=== PATIENT | female | born 1930 | race Caucasian/White ===

== ENCOUNTER 2016-09-24 14:14 | Emergency (ER) | payer MEDICARE ==
[~2016-09-24] VITALS: Ht 160 cm; Wt 60.0 kg
[2016-09-24 14:19] VITALS: BP 133/65; PULSE 72; RESP 16; O2SAT 97
--- NOTE | 2016-09-24 15:09 | ED.REPORT ---
HPI-Altered Mental Status Date of Service Sep 24, 2016 ED Provider: Sage De La Fuente MD An 86 year old female with a history of dementia and previous stroke with left sided residual weakness presents to the ED complaining of worsening fatigue that began a few days ago. Family reports intermittent episodes of confusion for the past few years that have become increasingly worse over the past few months. Recent associated symptoms include weakness, hypersomnia and left eye ptosis that began approx. one week ago. also reports odorous urine for the past few days. Family denies any recent fever, chills, cough, abdominal pain , nausea, vomiting, chest pain, visual changes, dysphagia, slurred speech, numbness/tingling or new onset weakness. Nursing Notes Stated Complaint: FATIGUE, CONFUSION Chief Complaint: General Complaint Nursing Notes Reviewed: Yes Allergies: Coded Allergies: No Known Allergies (Unverified , 09/24/16) Scheduled Cephalexin (Keflex) 500 Mg Capsule 500 MG PO QID General Time Seen by MD: 15:08 Chief Complaint Confused Hx Obtained From: Patient, Spouse, Daughter Arrived By: Walk-in Sudden in Onset?: No Onset Occurred: 1 week ago Symptom Duration: Since onset Progression since Onset: Gradually worsening Associated with: Denies: Chest pain, Fever, Visual disturbance, Weakness Pertinent Negative: Pt denies other symptoms Recent Healthcare: No recent doctor visit, No recent hospitalization Risk Factors )( IC Bleed Risk Strat RF Statements: Risk factors reviewed )( SAH Risk Stratification RF Statements: Risk factors reviewed Past Medical History Past Medical History Dementia Stroke with residual left-sided weakness Past Surgical History None reported Smoking History Unknown if Ever Smoker Social History Other Social History: Good social support, Local resident Ambulatory Status Independent Review of Systems Hypersomnia Odorous urine Denies dysphagia Denies facial asymmetry Constitutional: Reports: Fatigue, Weakness - generalized, Denies: Chills, Fever Cardiovascular: Denies: Chest pain GI: Denies: Abdominal pain, Nausea, Vomiting Neurologic: Reports: Confusion, Weakness, Denies: Change LOC, Focal weakness, Slurred speech, Unable to speak, Vision change Complete sys rev & neg: except as marked. Physical Exam Initial Vital Signs Vital Signs (First) Date Time Temp Pulse Resp B/P Pulse Ox O2 Delivery O2 Flow Rate FiO2 09/24/16 14:19 36.5 72 16 133/65 97 Room Air Initial VS: Reviewed Extremities: Vascular intact, Neuro intact, No swelling, No tenderness Skin: Warm, Dry, No cyanosis Psychiatric: Mood/affect normal, Behavior normal, Normal thought content General/Constitutional: Awake, Alert, No acute distress, Well appearing, Well developed Alertness: Positive: Confused (Unable to remember daughter) Head / Eyes: Atraumatic, Normocephalic Eyelids: Positive: Ptosis L Neck: Atraumatic, Supple Respiratory / Chest: Atraumatic, Breath sounds NL, Breath sounds = bilat, No respiratory distress Cardiovascular: Heart rate NL, Regular rhythm, Heart sounds NL, No murmurs, Peripheral circulation NL, Pulses = bilaterally Neurologic: Oriented X3, Speech NL, No motor deficits, No sensory deficits, CN II - XII intact, Cerebellar NL Mental Status: Positive: Confused (Unable to remember daughter) NERUO: Left eye ptosis Abdomen: Atraumatic, Soft, Non-tender, No guarding, No rebound Interpretation & Diagnostics Lab Results Interpretation Result Diagram: 09/24/16 1600 09/24/16 1600 Test 09/24/16 16:00 09/24/16 17:43 White Blood Count 6.9th/mm3 (3.8-10.1) Red Blood Count 4.35mil/mm3 (3.90-5.20) Hemoglobin 13.5g/dL (12.0-15.6) Hematocrit 40.3% (35.0-46.0) Mean Corpuscular Volume 92.6fL (81-100) Mean Corpuscular Hemoglobin 31.0pg (27.0-35.0) Mean Corpuscular Hemoglobin Concent 33.5% (32.0-37.0) Red Cell Distribution Width 13.3% (12.3-15.4) Platelet Count 227bil/L (150-400) Neutrophils (%) (Auto) 73.9% (40-74) Lymphocytes (%) (Auto) 10.4% (14-46) Monocytes (%) (Auto) 13.4% (4-12) Eosinophils (%) (Auto) 1.7% (0-5) Basophils (%) (Auto) 0.3% (0-3) Sodium Level 135mEq/L (134-144) Potassium Level 3.6mEq/L (3.5-5.2) Chloride Level 98mEq/L (97-108) Carbon Dioxide Level 23mmol/L (18-29) Blood Urea Nitrogen 19mg/dL (8-27) Creatinine 0.60mg/dL (0.57-1.00) Estimat Glomerular Filtration Rate 136mL/min (>59) Glucose Level 132mg/dL (60-99) Calcium Level 8.7mg/dL (8.5-10.1) Total Bilirubin 0.5mg/dL (0.0-1.2) Aspartate Amino Transf (AST/SGOT) 13U/L (0-50) Alanine Aminotransferase (ALT/SGPT) 17U/L (0-32) Alkaline Phosphatase 53U/L (25-165) Troponin T < 0.010ug/L (0.0-0.011) Total Protein 6.7g/dL (6.4-8.4) Albumin 3.5g/dL (3.4-5.0) Hold Wheeler Top Tube Received (Received) Urine Color Yellow (YELLOW) Urine Appearance Hazy (CLEAR,HAZY) Urine pH 5.5 (5.0-8.0) Urine Specific [place] 1.025 (1.003-1.035) Urine Protein Tracemg/dL (NEG,TRACE) Urine Glucose (UA) Negativemg/dL (NEGATIVE) Urine Ketones Negativemg/dL (NEGATIVE) Urine Occult Blood Small (NEGATIVE) Urine Nitrite Positive (NEGATIVE) Urine Bilirubin Negative (NEGATIVE) Urine Urobilinogen Normalmg/dL (NORMAL) Urine Leukocyte Esterase Moderate (NEGATIVE) Urine RBC 3-10/hpf (0-2) Urine WBC Packed/hpf (0-5) Urine Epithelial Cells Occasional/hpf (NONE-MOD) Urine Crystals None seen (NONE SEEN) Urine Bacteria Many/hpf (NONE-FEW) Urine Hyaline Casts None/lpf (NONE) Urine Granular Casts None seen (NONE SEEN) Urine Waxy Casts None seen (NONE SEEN) Urine Red Blood Cell Casts None seen (NONE SEEN) Urine White Blood Cell Casts None seen (NONE SEEN) Urine Mucus None seen (None Seen) Urine Trichomonas None seen (NONE SEEN) Urine Yeast None (NONE SEEN) Urinalysis Comment None Urine Culture Reflexed Indicated ECG Interpretation ECG Interpretation: Sinus Rhythm Rate 66 LBBB No STT changes Time: 16:34 Interpreted by: ED physician CT Head Interpretation IMPRESSION: 1. No acute intracranial hemorrhage. 2. 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 3. Moderate parenchymal volume loss and chronic small vessel ischemic changes. 4. Moderate maxillary and ethmoid sinus disease. Dictated by: Jonnie Jurado M.D. on 09/24/2016 at 15:54 Study: Head CT no contrast Interpretation / Wet Read by: Interpret - Radiologist Re-Eval/Medical Decision Med Decision/Clinical Course 86-year-old female history of dementia brought in by family for weakness times several days. Enteritis. They report chronic progression of her dementia. Recently she has been more weak than usual. Vital signs are stable. Urine suggests UTI. Her labs are unremarkable. She does have some left eye ptosis and CT scan was performed with no acute pathology. Patient be treated for UTI which is possibly the cause of her weakness. I do not see an indication for admission. She will follow-up with her primary doctor in 1-2 days. Return precautions given. Re-Evaluation/Progress #1: Time of Eval: 15:31 Patient Status: Condition improved Re-Evaluation/Progress Note: Patient is rechecked. Family is informed of the pt's reassuring exam. They are offered lab work and CT. All questions about the intended treatment plan are addressed. Re-Evaluation/Progress #2: Time of Eval: 17:09 Patient Status: Condition improved Re-Evaluation/Progress Note: Family is informed of the pt's reassuring CT results, EKG results and lab work. They understand and agree with the discharge plan. Counseled Regarding: Diagnosis, Lab results, Need for follow-up, When/why to return to ED Patient Discharge & Departure Impression: Primary Impression: Urinary tract infection Urinary tract infection type: site unspecified Hematuria presence: without hematuria Qualified Code: N39.0 - Urinary tract infection, site not specified Additional Impression: Dementia Dementia type: unspecified type Dementia behavioral disturbance: without behavioral disturbance Qualified Code: F03.90 - Unspecified dementia without behavioral disturbance Disposition: Home Discharge Condition All VS Reviewed: Yes Condition: Improved Patient Instructions: Dementia (ED), Urinary Tract Infection in Women (ED) Additional Instructions: Thank you for trusting us with your care this evening. Your urine results revealed a urinary tract infection. Your other results today including examination, EKG, lab work and head CT results are reassuring that there is no dangerous cause for concern at this time. I recommend that you schedule a follow up appointment with your primary care physician in the next 2-3 days for a recheck. Please take the full course of Keflex as directed. Continue to take home medication as prescribed. Please return to the emergency department if you begin to develop any new or worsening conditions including any confusion, slurred speech, facial asymmetry, one sided weakness/numbness/tingling, back pain, high fevers, shaking chills or vomiting. Referrals: OTHER,PHYSICIAN (PCP) (Family) Scribe Attestation Portions of this note were transcribed by Qing Nolen. I, Dr. De La Fuente personally performed the history, physical exam and medical decision-making; I reviewed and confirmed the accuracy of the information in the transcribed note. Signed by: Jorge Saleh, 09/24/16 1741. Sage De La Fuente MD Sep 24, 2016 15:09 QING NOLEN Sep 24, 2016 15:27
[2016-09-24 16:11] LABS: BASOPHILS % (AUTO) 0.3 % (0-3); EOSINOPHILS % (AUTO) 1.7 % (0-5); MONOCYTES % (AUTO) 13.4 % (4-12); Mean Corpuscular Volume 92.6 fL (81-100); NEUTROPHILS % (AUTO) 73.9 % (40-74); Platelet Count 227 bil/L (150-400)
--- NOTE | 2016-09-24 16:59 | DRSVH ---
PROCEDURE: CT BRAIN WITHOUT CONTRAST ([id number]) INDICATIONS: altered mental status TECHNIQUE: Noncontrast 4.5 mm thick angled axial sections acquired from the foramen magnum to the vertex, with c oronal reformats. COMPARISON: None. FINDINGS: Image quality: Diagnostic. Brain: Multiple surgical coils are seen overlying the region of the left internal carotid artery term inus. Metallic artifact from these surgical coils does result in difficulty evaluating the adjacent soft tissues. There is no acute intra-axial or extra-axial hemorrhage. No extra-axial fluid collect ion is identified. There is no midline shift or mass effect. The orbits are grossly unremarkable. No large areas of diffusely decreased attenuation are evident within the brain to suggest diffuse cer ebral edema. Confluent areas of low attenuation are seen within the periventricular and deep white m atter of the supratentorial brain. The ventricles and cortical sulci are moderately prominent. Bones: Calvarium and visualized facial bones are grossly intact. Moderate mucosal thickening is not ed involving the bilateral maxillary sinuses and to a lesser degree involving the ethmoid air cells. Otherwise, the paranasal sinuses and mastoid air cells are clear. IMPRESSION: 1. No acute intracranial hemorrhage. 2. 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 3. Moderate parenchymal volume loss and chronic small vessel ischemic changes. 4. Moderate maxillary and ethmoid sinus disease. Dictated by: Jonnie Jurado M.D. on 09/24/2016 at 15:54 Approved by: Jonnie Jurado M.D. on 09/24/2016 at 15:57
[2016-09-24] MEDS ORDERED: CEPH-512 PO (17:39)
[2016-09-24 17:57] VITALS: BP 148/49; PULSE 70; RESP 16; O2SAT 96
[2016-09-24 18:19] LABS: APPEARANCE,URINE HAZY (CLEAR,HAZY); COLOR,URINE YELLOW (YELLOW); PH,URINE 5.5 (5.0-8.0)
[2016-09-24 18:20] LABS: OCCULT BLOOD,URINE SMALL (NEGATIVE); UROBILINOGEN,URINE NORMAL (NORMAL)
== END 2016-09-24 17:59 | disposition home or self-care (01) ==
LOC: SED 14:14
DX: N39.0 Urinary tract infection, site not specified (principal); B96.20 Unspecified Escherichia coli [E. coli] as the cause of diseases classified elsewhere; G47.10 Hypersomnia, unspecified; F03.90 Unspecified dementia, unspecified severity, without behavioral disturbance, psychotic disturbance, mood disturbance, and anxiety; I69.398 Other sequelae of cerebral infarction

== ENCOUNTER 2016-10-13 19:13 | Emergency (ER) | payer MEDICARE ==
[~2016-10-13] VITALS: Ht 157.5 cm; Wt 50.0 kg
[~2016-10-13 19:13] MED LIST: CEPH-512 PO
[2016-10-13 19:14] VITALS: BP 132/63; PULSE 104; RESP 16; O2SAT 95
--- NOTE | 2016-10-13 20:10 | DRSVH ---
PROCEDURE: X-RAY PELVIS WITH BILATERAL HIPS, 3 VIEWS INDICATIONS: pain TECHNIQUE: AP pelvis with lateral view(s) of the bilateral hip(s). COMPARISON: None. FINDINGS: Bones: No fractures or dislocations. Pelvic ring appears intact. No suspicious bony lesions. Soft tissues: The visualized bowel gas pattern is normal. No suspicious soft tissue calcifications. IMPRESSION: Degenerative changes. No visualized acute fracture or dislocation. However, if clinical c oncern and/or pain persist, short interval imaging followup in 7-10 days is recommended, as occult in jury cannot be definitively excluded. Dictated by: Shannan Contreras M.D. on 10/13/2016 at 20:08 Approved by: Shannan Contreras M.D. on 10/13/2016 at 20:09
--- NOTE | 2016-10-13 21:14 | ED.REPORT ---
HPI-Hip/Pelvis Prob/Inj Date of Service Oct 13, 2016 ED Provider: Jorge Herzog MD Nursing Notes Stated Complaint: SORE HIP, RIGHT SIDE Chief Complaint: Extremity Trauma Allergies: Coded Allergies: No Known Allergies (Unverified , 09/24/16) Scheduled Cephalexin (Keflex) 500 Mg Capsule 500 MG PO QID Past Medical History Past Medical History Dementia Stroke with residual left-sided weakness Past Surgical History None reported Smoking History Unknown if Ever Smoker Social History Other Social History: Good social support, Local resident Ambulatory Status Independent Physical Exam Initial Vital Signs Vital Signs (First) Date Time Temp Pulse Resp B/P Pulse Ox O2 Delivery O2 Flow Rate FiO2 10/13/16 19:14 36.9 104 16 132/63 95 Room Air Discharge & Departure Referrals: OTHER,PHYSICIAN (PCP) Jorge Herzog MD Oct 13, 2016 21:14
== END 2016-10-13 21:00 | disposition left against medical advice (07) ==
LOC: SED 19:13
DX: M25.551 Pain in right hip (principal); Z53.21 Procedure and treatment not carried out due to patient leaving prior to being seen by health care provider

== ENCOUNTER 2016-10-17 14:11 | Observation (INO) | payer MEDICARE ==
[~2016-10-17] VITALS: Ht 160 cm; Wt 52.1 kg
[2016-10-17 14:22] VITALS: BP 151/73; PULSE 82; RESP 12; O2SAT 95
--- NOTE | 2016-10-17 15:28 | ED.REPORT ---
HPI-General Illness Date of Service Oct 17, 2016 ED Provider: João Appiah MD The patient is a 86 year old female w/ a hx of dementia and stroke who presents to the ED sent by her eye doctor due to left eyelid droop over the past month and worse over the last few weeks. No known alleviating or exacerbating factors ; it is present persistently. History is somewhat limited secondary to patient' s dementia. For 2 days, pt has also had increased difficulty walking. Denies any other associated symptoms, including vision changes at this time. She does not have any short term memory, this is baseline per family, who is present.. She denies chest pain, nausea, vomiting, unilateral weakness, shortness of breath, headache, diarrhea, dysuria, hematuria, incontinence, any changes in urination, or any other symptoms. Pt had a stroke 8 years ago. Nursing Notes Stated Complaint: PROBLEMS WITH LEFT EYE Chief Complaint: General Complaint Nursing Notes Reviewed: Yes Allergies: Coded Allergies: No Known Allergies (Unverified , 09/24/16) Scheduled Aspirin (Aspirin) 81 Mg Tablet 81 MG PO DAILY Carvedilol (Carvedilol) 12.5 Mg Tablet 12.5 MG PO BID Cholecalciferol (Vitamin D3) (Vitamin D3) 1,000 Unit Tab.chew 1,000 UNIT PO DAILY Fluoxetine (Fluoxetine) 20 Mg Capsule 20 MG PO DAILY Lisinopril (Lisinopril) 5 Mg Tablet 5 MG PO DAILY Multivitamin (Once Daily) 1 Each Tablet 1 EACH PO DAILY Rosuvastatin Calcium (Rosuvastatin Calcium) 40 Mg Tablet 40 MG PO DAILY Tamsulosin (Flomax) 0.4 Mg Capsule 0.4 MG PO DAILY Trospium Chloride (Trospium Chloride) 20 Mg Tablet 20 MG PO DAILY General Time Seen by MD: 15:00 Chief Complaint Other (left eyelid droop) Hx Obtained From: Patient Arrived By: Walk-in Sudden in Onset?: Yes Onset Occurred: More than a week ago... (2 weeks) Symptom Duration: Since onset Severity: Current: No pain currently Recent Healthcare: Recent doctor visit Similar Sx Previous: Yes Past Medical History Past Medical History Dementia Stroke with residual left-sided weakness Past Surgical History None reported Smoking History Unknown if Ever Smoker Social History Other Social History: Good social support, Local resident Ambulatory Status Independent Review of Systems left eyelid droop Full Review of Systems Respiratory: Denies: Shortness of breath Cardiovascular: Denies: Chest pain GI: Denies: Diarrhea, Nausea, Vomiting Female: Denies: Dysuria, Hematuria, Incontinence, Urinary frequency, Urinary urgency, Urination decreased, Urination increased Neurologic: Reports: Problem walking, Denies: Headache Complete sys rev & neg: except as marked. Physical Exam Nursing note and vitals reviewed. Constitutional: Well-developed, well-nourished. Not diaphoretic. Head: Normocephalic and atraumatic. Mouth/Throat: Oropharynx is clear and moist. No oropharyngeal exudate. Eyes: Both pupils are 4mm. Right pupil reactive, left pupil minimally reactive. Left lid droop. She can't raise the left eye or rotate superiorly past the horizon. Visual bro appear to be grossly intact to fingers on exam with the exception of superiorly on the left. Neck: Supple, no tracheal deviation. Cardiovascular: Normal rate, regular rhythm. Equal and intact distal pulses throughout. Pulmonary/Chest: Effort normal and breath sounds normal. No respiratory distress. Abdominal: Soft. No distension. There is no tenderness, rebound, or guarding. Bowel sounds present. Musculoskeletal: Range of motion grossly intact, moving all extremities. No edema or tenderness appreciated. Neurological: AOx3, though sometimes slow to respond. Baseline per family. Aside from left lid droop, grossly nonfocal exam. Strength and sensation intact and equal to bilateral upper and lower extremities. Skin: Warm and dry, no rashes or pallor appreciated. Psychiatric: Appropriate mood and affect. Behavior appears normal. Vital Signs Vital Signs Date Time Temp Pulse Resp B/P Pulse Ox O2 Delivery O2 Flow Rate FiO2 10/17/16 18:00 71 22 148/60 95 Room Air 10/17/16 14:22 37.0 82 12 151/73 95 Room Air Initial VS: Reviewed Interpretation & Diagnostics Interpretation & Diagnostics: HEAD/NECK CTA IMPRESSION: 1. 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 No evidence of rupture. 2. Remaining arteries of the neck and head are patent. No further aneurysms. Left dominant vertebral artery. 3. Spiculated left apical pulmonary nodule is suspicious for malignancy. Recommend a chest CT with contrast which may be performed on a nonemergent basis. Biapical emphysema. Dictated by: Mike Abdalla M.D. on 10/17/2016 at 17:21 Approved by: Mike Abdalla M.D. on 10/17/2016 at 17:37 Lab Results Interpretation Result Diagram: 10/17/16 1533 10/17/16 1533 Test 10/17/16 15:33 White Blood Count 12.7th/mm3 (3.8-10.1) Red Blood Count 4.42mil/mm3 (3.90-5.20) Hemoglobin 13.5g/dL (12.0-15.6) Hematocrit 40.3% (35.0-46.0) Mean Corpuscular Volume 91.2fL (81-100) Mean Corpuscular Hemoglobin 30.5pg (27.0-35.0) Mean Corpuscular Hemoglobin Concent 33.5% (32.0-37.0) Red Cell Distribution Width 13.1% (12.3-15.4) Platelet Count 281bil/L (150-400) Neutrophils (%) (Auto) 78.8% (40-74) Lymphocytes (%) (Auto) 8.0% (14-46) Monocytes (%) (Auto) 11.3% (4-12) Eosinophils (%) (Auto) 0.6% (0-5) Basophils (%) (Auto) 0.2% (0-3) Prothrombin Time 10.4sec (8.1-12.5) Prothromb Time International Ratio 0.97ratio Activated Partial Thromboplast Time 24.7sec (22.8-33.0) Sodium Level 137mEq/L (134-144) Potassium Level 3.5mEq/L (3.5-5.2) Chloride Level 97mEq/L (97-108) Carbon Dioxide Level 24mmol/L (18-29) Blood Urea Nitrogen 19mg/dL (8-27) Creatinine 0.54mg/dL (0.57-1.00) Estimat Glomerular Filtration Rate 154mL/min (>59) Glucose Level 99mg/dL (60-99) Calcium Level 8.9mg/dL (8.5-10.1) Total Bilirubin 0.6mg/dL (0.0-1.2) Aspartate Amino Transf (AST/SGOT) 21U/L (0-50) Alanine Aminotransferase (ALT/SGPT) 27U/L (0-32) Alkaline Phosphatase 57U/L (25-165) Troponin T < 0.010ug/L (0.0-0.011) Total Protein 6.2g/dL (6.4-8.4) Albumin 3.3g/dL (3.4-5.0) Triglycerides Level 87mg/dL (0-149) Cholesterol Level 105mg/dL (100-199) LDL Cholesterol, Calculated 53.600mg/dL (0-99) VLDL Cholesterol 17.400mg/dL HDL Cholesterol 34mg/dL (>39) Cholesterol/HDL Ratio 3.09 (0.0-4.4) ECG Interpretation ECG Interpretation: LBBB no acute changes Time: 15:50 Interpreted by: ED physician Normal ECG Interpretation: Normal sinus rhythm (rate 76) CT Head Interpretation IMPRESSION: 1. No acute intracranial abnormalities. 2. Old lacunar infarct in the right basal ganglia. 3. Cerebral volume loss and chronic microvascular ischemic changes. 4. Prior aneurysm coiling. Dictated by: Kinza Corona M.D. on 10/17/2016 at 15:22 Approved by: Kinza Corona M.D. on 10/17/2016 at 15:27 Study: Head CT no contrast Interpretation / Wet Read by: Interpret - Radiologist Re-Eval/Medical Decision Med Decision/Clinical Course In summary, 86-year-old female with a history of dementia and prior CVA presenting to the ED for evaluation of left lid droop and presumed cranial nerve palsy noticed by her deputy head. Differential is broad and includes intracranial bleed, ischemic stroke, neuropathy, etc. Hemodynamically stable here in the emergency department. Patient not a candidate for TPA given that her symptoms have been going on for several weeks to a month. 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 Incidental left apical pulmonary nodule noted; inpatient team to discuss further with the patient including need for chest CT. Laboratory studies reviewed, noted above. No obvious abnormalities that would account for her current presentation. EKG demonstrates sinus rhythm with a left bundle branch block, no acute changes from previous. I discussed the case with the radiologist. Seems unlikely that the aneurysm present would be responsible for the patient's symptoms at this time given its location. Discussed the patient with the hospitalist service, who will admit for further management and evaluation. Patient and family agreeable to the plan as stated, no further questions. Time of Eval: 18:25 Re-Evaluation/Progress Note: Pt rechecked. Informed of CT scan results and plan for admission. Pt understands and agrees with plan. All questions addressed. Consultation #1: Referral / Consult Name: Jasson Abdalla MD Call Returned at: 18:22 Note: Ct scan discussed [facility] radiology, Dr. Mike Abdalla. He says it is unlikely it is near the cranial nerve. Consultation #2: Referral / Consult Name: Jackson Flores MD Consulted With: Hospitalist Call Returned at: 18:27 Searchlight Operator: Agrees with eval, Agrees with plan, Accepts admit Note: Case discussed. Dr. Flores accepts admit. Counseled Regarding: Diagnosis, Lab results, Need for admission Discharge & Departure Primary Impression: Oculomotor nerve palsy Laterality: left Qualified Code: H49.02 - Third [oculomotor] nerve palsy, left eye Additional Impression: CVA (cerebral vascular accident) CVA mechanism: embolism Precerebral and cerebral artery: unspecified precerebral artery Qualified Code: I63.10 - Cerebral infarction due to embolism of unspecified precerebral artery Disposition: ADMITTED TO HOSPITAL Discharge Condition All VS Reviewed: Yes Condition: Stable Referrals: NOPCP (PCP) [facility] Crit Care Except Billable Proc Time Spent: 30-74 minutes Services Performed: Patient management by me, Time spent at bedside, Reviewing test results, Reviewing imaging, Discussing patient care, Documentation in record, Time with fam/surrogate Scribe Attestation Portion of this note were transcribed by Osiris Nunn. I, Dr. Appiah, personally performed the history, physical exam, and medical decision-making: I reviewed and confirmed the accuracy for the information in the transcribed note. Signed by: bhanu More, 10/17/16 2100 copies to: [facility] João Appiah MD Oct 17, 2016 15:28 Osiris Nunn Oct 17, 2016 16:41 João Appiah MD Oct 17, 2016 15:28 Osiris Nunn Oct 17, 2016 16:41
--- NOTE | 2016-10-17 15:29 | DRSVH ---
PROCEDURE: CT BRAIN WITHOUT CONTRAST ([id number]) INDICATIONS: Stroke TECHNIQUE: Noncontrast 4.5 mm thick angled axial sections acquired from the foramen magnum to the vertex, with c oronal reformats. COMPARISON: [facility], CT, CT BRAIN WO SHAR, 09/24/2016, 16:46. FINDINGS: Image quality: Excellent. CSF spaces: Aneurysm coils are noted in the left suprasellar region. Metallic artifacts partially ob scure adjacent structures. Basal cisterns are patent. No extra-axial fluid collections. The ventric les are symmetric in size and shape. Brain: No intracranial bleeds or masses. An old lacunar infarct is noted in the right basal ganglia . There is moderate cerebral volume loss for age, with resultant ventricular and sulcal prominence. There are moderate to severe periventricular and deep white matter chronic small vessel ischemic heath ges. There is intracranial internal carotid artery atherosclerosis. Skull and face: Calvarium and visualized facial bones appear intact, without suspicious lesions. Sinuses: Visualized sinuses and mastoids are clear. IMPRESSION: 1. No acute intracranial abnormalities. 2. Old lacunar infarct in the right basal ganglia. 3. Cerebral volume loss and chronic microvascular ischemic changes. 4. Prior aneurysm coiling. Dictated by: Kinza Corona M.D. on 10/17/2016 at 15:22 Approved by: Kinza Corona M.D. on 10/17/2016 at 15:27
[2016-10-17 15:41] LABS: BASOPHILS % (AUTO) 0.2 % (0-3); EOSINOPHILS % (AUTO) 0.6 % (0-5)
[2016-10-17 15:44] LABS: MONOCYTES % (AUTO) 11.3 % (4-12); Mean Corpuscular Hemoglobin 30.5 pg (27.0-35.0); Mean Corpuscular Volume 91.2 fL (81-100); NEUTROPHILS % (AUTO) 78.8 % (40-74); Platelet Count 281 bil/L (150-400)
[2016-10-17 15:58] LABS: INR 0.97 ratio
[2016-10-17 16:09] LABS: TROPONIN T < 0.010 ug/L (0.0-0.011)
--- NOTE | 2016-10-17 17:03 | NUR ---
Evaluation completed. Please go to "Notes" then click on "Assessments and Notes" (bottom left corner of screen). Then select appropriate discipline tab on top of screen.
--- NOTE | 2016-10-17 17:39 | DRSVH ---
Adelina URIARET: CT ANGIO HEAD AND NECK (P) INDICATIONS: hx aneurysm w/ new ophtho complaint; eval aneurysm TECHNIQUE: Pre-contrast 4.5 mm thick sections acquired from the foramen magnum to the vertex. After the adminis tration of intravenous contrast, 1 mm thick sections acquired from the aortic arch through the [place] of [place]. Post-contrast 4.5 mm thick sections then re-acquired from the foramen magnum to the vert ex. 3-dimensional zrgoixu-hrkcctpic-pwneufopbn (MIP) and/or volume rendering reformats were acquired of the central intracranial vasculature and neck separately. For radiation dose reduction, the foll owing was used: automated exposure control, adjustment of mA and/or kV according to patient size. COMPARISON: [facility], CT, CT BRAIN WO CON, 10/17/2016, 15:08. FINDINGS: Image quality: Excellent. BRAIN: CSF spaces: Ventricles are normal in size and shape. Basal cisterns are patent. No extra-axial flu id collections. Brain: No acute hemorrhage no infarction, masses or midline shift. Left occipital lobe encephalomalac ia. Bilateral basal ganglier lacunar infarctions or perivascular spaces. Generalized vertebral cerebe llar atrophy. Skull and face: Calvarium and facial bones appear intact, without suspicious lesions. Orbits appear normal. Sinuses: Sinuses and mastoids are clear. HEAD CT ANGIOGRAPHY: Anterior circulation: Intracranial internal carotid arteries are normal in size and flow with calcif ied atheromatous plaque in the distal most portions.. The flow within the paired anterior cerebral a rteries is normal and symmetric. The flow within the middle cerebral arteries is normal and symmetri c. The anterior communicating artery is seen. No aneurysms are seen. Posterior circulation: Postoperative changes of previous basilar tip aneurysm coiling with marked met allic artifact degrading evaluation. 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 Markedly atrophic right vertebral artery with dominant left vertebral art rosmery. Vertebral arteries combine to form the basilar artery which is normal caliber proximally. NECK CT ANGIOGRAPHY: Carotid system: The great vessels demonstrate a conventional anatomy as they arise from the aortic a rch. The origins of the common carotid arteries appear patent. The common carotid arteries demonstr ate normal caliber and courses. The bifurcation regions are both patent with hemodynamically insigni ficant calcified atheromatous plaque. The internal carotid arteries demonstrate normal calibers and courses. Posterior circulation: The origins of the vertebral arteries both appear widely patent. The more arambula perior extracranial portions of both vertebral arteries also demonstrate normal courses and calibers. Left vertebral artery dominance. The right vertebral artery is atrophic but patent. They join to for m a basilar artery which is normal caliber proximally. Soft tissues: Biapical emphysema with 1.4 cm left upper lobe spiculated irregular mass. Multiple low- density thyroid nodules measuring up to 1.1 CM. Bones: No suspicious bony lesions. Visualized cervical spine appears normally aligned. The cervica l spine degenerative change. IMPRESSION: 1. Postoperative changes of previous basilar artery tip aneurysm repair. There is a residual or recur rent aneurysm measuring up to 1.1 CM extending superiorly from the aneurysm coils. No evidence of rup ture. 2. Remaining arteries of the neck and head are patent. No further aneurysms. Left dominant vertebral artery. 3. Spiculated left apical pulmonary nodule is suspicious for malignancy. Recommend a chest CT with co ntrast which may be performed on a nonemergent basis. Biapical emphysema. Dictated by: Mike Abdalla M.D. on 10/17/2016 at 17:21 Approved by: Mike Abdalla M.D. on 10/17/2016 at 17:37
[2016-10-17 18:00] VITALS: BP 148/60; PULSE 71; RESP 22; O2SAT 95
[2016-10-17] MEDS ORDERED: MULT-666 PO (18:56)
[2016-10-17] MEDS ORDERED: LISI-571 PO (18:56)
[2016-10-17] MEDS ORDERED: CARV12.52 PO (18:56)
[2016-10-17] MEDS ORDERED: ROSU40TA20 PO (18:56)
[2016-10-17] MEDS ORDERED: CHOL10008 PO (18:56)
[2016-10-17] MEDS ORDERED: TAMS0.4C98 PO (18:56)
[2016-10-17] MEDS ORDERED: ASPI-973 PO (18:56)
[2016-10-17] MEDS ORDERED: FLUO20CA25 PO (18:56)
[2016-10-17] MEDS ORDERED: TROS20TA4 PO (18:56)
[2016-10-17 19:40] VITALS: BP 140/70; PULSE 71; RESP 16; O2SAT 94
[2016-10-17] MEDS ORDERED: Ondansetron 2 mg/mL 2 mL Inj IVPUSH PRN (20:00)
[2016-10-17] MEDS ORDERED: Labetalol 5 mg/mL 4 mL Inj IVPUSH PRN (20:00)
[2016-10-17] MEDS ORDERED: Polyethylene Glycol (PEG) 17 Gm Powder PO PRN (20:00)
[2016-10-17] MEDS ORDERED: Alum-Mag Hydrox-Simeth 30 mL Suspension PO PRN (20:00)
[2016-10-17 20:31] VITALS: BP 167/75; PULSE 72; RESP 16; O2SAT 95
--- NOTE | 2016-10-17 20:54 | PCM.HPMED ---
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 The patient herself is demented and is unable to give a thorough history. Patient's family including her and her granddaughter provides much of the history. Per the family's report the patient has been having left eye droop for the last month that has been worse over the last couple of days. The last couple of days the patient has also been noted to be much slower in her walking. They deny any unilateral weakness, slurred speech, facial droop, aspiration. Patient herself states that she feels fine and is unsure why she is here. 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 In the emergency department her vital signs were stable on presentation. A CT of the head revealed prior aneurysmal coiling but no acute intracranial changes. A CT angiogram of the head and neck revealed an old aneurysm appeared to be in an area unrelated to the patient's facial droop. Review of Systems: A comprehensive review of systems was conducted with the patient and found to be negative except as above in the History of Present Illness. Allergies Coded Allergies: No Known Allergies (Unverified , 09/24/16) Home Medications Natacha Monahan [id number] 1930 10/14/2016 10:10 AM 04/04 Start Date Medication Directions Stop Date aspirin 81 mg tablet,delayed release take 1 tablet by oral route every day carvedilol 12.5 mg tablet take 1 tablet by oral route 2 times every day with food Crestor 40 mg tablet take 1 tablet by oral route every day fluoxetine 10 mg capsule take 1 by Oral route once lisinopril 5 mg tablet take 1 Tablet by oral route 2 times every day nitroglycerin 0.[address] 1 tablet by sublingual route at the 1st sign of attack; may repeat every 5 min until relief; if pain persists after 3 tablets in 15 min, prompt medical attention is recommended Vitamin D3 1,000 unit tablet take 1 Tablet by Oral route every day PMH Dementia Hyperlipidemia Hypertension 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 2 other brothers both had heart disease. Mother had colon cancer. Sister had lung cancer. Social History Hx Alcohol Use: Yes (sometimes wine) Hx Substance Use: No Smoking Status: Unknown if Ever Smoker Exam Vital Signs Vital Sign - Last Date Time Temp Pulse Resp B/P Pulse Ox O2 Delivery O2 Flow Rate FiO2 10/17/16 19:40 36.5 71 16 140/70 94 Room Air Exam General: No acute distress, frail elderly lady laying comfortable in a hospital bed. HEENT: Normocephalic, atraumatic. External ears without defect. Pupils equal, round, and reactive to light and accommodation. Anicteric sclerae, moist conjunctivae, and no lid lag. Oropharynx free of erythema and cobble stoning with moist mucosa. Left pupil dilated. Left eyelid drooping. Neck: Supple with full range of motion. No jugular venous distension. No bruits. No lymphadenopathy or thyromegaly. Cardiovascular: Regular rate and rhythm with no murmurs, rubs, or gallops appreciated Pulmonary: Clear to auscultation bilaterally with no crackles, wheezes, or rhonchi. Normal respiratory effort with no use of accessory muscles. Abdomen: Bowel tones present. Soft, nontender, nondistended. No hepatosplenomegaly or masses appreciated. Extremities: No clubbing, cyanosis, edema, or lymphadenopathy appreciated. Skin: Normal temperature, turgor, and texture; no rash, ulcers, or subcutaneous nodules appreciated. Neurological: Cranial nerves bilaterally intact with the exception of cranial nerve III. Normal muscle strength, tone, with reduced bulk. Coordination, and sensory function within normal limits. Psychiatric: Normal mood and affect. Alert and oriented to person, place. Lab and Diagnostics Result Diagram: 10/17/16 1533 10/17/16 1533 X-Rays, CTs and MRIs CT BRAIN WITHOUT CONTRAST IMPRESSION: 1. No acute intracranial abnormalities. 2. Old lacunar infarct in the right basal ganglia. 3. Cerebral volume loss and chronic microvascular ischemic changes. 4. Prior aneurysm coiling. Dictated by: Kinza Corona M.D. on 10/17/2016 at 15:22 CT ANGIO HEAD AND NECK IMPRESSION: 1. 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 No evidence of rupture. 2. Remaining arteries of the neck and head are patent. No further aneurysms. Left dominant vertebral artery. 3. Spiculated left apical pulmonary nodule is suspicious for malignancy. Recommend a chest CT with contrast which may be performed on a nonemergent basis. Biapical emphysema. Dictated by: Mike Abdalla M.D. 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 lipid panel, A1c -CT angiogram of head and neck negative for carotid artery stenosis. -A shunt was already on 81 mg of aspirin consider starting Plavix for secondary stroke prevention. -Speech therapy, therapy, occupational therapy to evaluate. Spiculated left apical pulmonary nodule is suspicious for malignancy. -Recommend a chest CT with contrast which may be performed on a nonemergent basis -Patient's recent contrast load will hold off on chest CT. Hypertension -Continue home medications Hyperlipidemia -Continue home medication Patient is admitted under inpatient status with expected length of stay greater than 2 midnights due to severity of presenting symptoms, risk of adverse event, and complexity of treatment plan. VTE Prophylaxis: Sub-Q Heparin (Unfractionated) Resuscitation Status: CPR: Attempt Resuscitation Attending Statement The patient was seen and examined together with Dr. Gastelum on 10/17 and I agree with the history, exam and plan as outlined in the note above. Dulce Gastelum DO Oct 17, 2016 20:25 Elton Morrissey MD Oct 18, 2016 03:36
[2016-10-17 22:32] LABS: APPEARANCE,URINE HAZY (CLEAR,HAZY); COLOR,URINE YELLOW (YELLOW); PH,URINE 7.5 (5.0-8.0)
[2016-10-17 22:33] LABS: OCCULT BLOOD,URINE LARGE (NEGATIVE); UROBILINOGEN,URINE NORMAL (NORMAL)
--- NOTE | 2016-10-17 22:47 | NUR ---
Admit Patient admitted to room 3018 at 2010 from ED. Patient alert to self only. Med list entered while in ED. Telemetry connected, IV patent. Unable to orient patient to room and plan r/t memory limitations. [place] and bed alarm on for safety, yellow socks too. Call light within reach, patient not using. Will check on patient frequently through the night, white board updated.
[2016-10-18] VITALS (9 sets, daily range): BP systolic 111–167; BP diastolic 59–79; PULSE 64–96; RESP 16–18; O2SAT 94–97
[2016-10-18] MEDS: Heparin 5,000 Unit/mL Inj SUBQ SCH ×3 (01:36→18:11)
--- NOTE | 2016-10-18 10:33 | NUR ---
NUTRITION ASSESSMENT: ASSESS: 86YO F admit with possible CVA. PMHX: Dementia, brain aneurysm,cranial nerve palsy DIET: Dysphagia Mechanical. PO not recorded LABS: Alb 3.3, A1c 5.7, MEDS:Reviewed GI: No BM WEIGHT: 52.3kg BMI: 20.4 EST.NEEDS: 1300-1550kcal, 50-60g pro (25-30kcal/kg;1.0-1.2g/kg pro) NUTRITION DIAGNOSIS: (1) Chew/swallowing difficulty related to dysphagia as evidenced by modified diet texture per ST. INTERVENTION: (1) Diet per ST. MONITOR/EVALUATE: Monitor texture tolerance, po intake, add supplements as needed. F/U per moderate risk.
--- NOTE | 2016-10-18 10:40 | NUR ---
Case Managment- YOUNG explained and signed/timed by DPOA. Copy given to family. Original left in chart. Rosa MA/ NERY
[2016-10-18] MEDS ORDERED: 0.9% Sodium Chloride 250 ML ONE (11:57)
[2016-10-18] MEDS: cefTRIAXone Inj 1,000 MG in Dextrose 5% Minibag Plus 50 ML IV SCH (12:01)
--- NOTE | 2016-10-18 14:38 | DRSVH ---
[facility] [address] [place] [address] Echocardiogram Report Name: ADELAIDA OSORIO Study Date: 10/18/2016 Height: 63 in Hospital Exam Location: [facility] Weight: 115 lb .Gender: Female BSA: 1.5 m2 : 1930 Age: 86 yrs BP: 159/71 mm Hg Reason For Study: R/O source of CVA Ordering Physician: Heriberto Linda Performed By: Nabila Gentile Referring Physician: PALAK CHAVEZ Interpretation Summary The left ventricle is mildly dilated. Left ventricular systolic function is mildly reduced. The ejection fraction is estimated to be 45-50%. There is septal wall moderate hypokinesis which could be secondary to bundle branch block. The right ventricle is grossly normal size. The right ventricular systolic function is normal. Pulmonary artery pressures cannot be estimated because of the lack of a measurable TR jet velocity. The left atrium is mildly dilated. The right atrium grossly appears normal in size. The interatrial septum is intact with no evidence for an atrial septal defect. Injection of contrast documented no interatrial shunt. There is no significant valvular heart disease. The aortic root is normal size. No obvious source for CVA on today's echocardiogram. Procedure: A two-dimensional transthoracic echocardiogram with color flow and Doppler was performed. The study quality was technically adequate. Images from the parasternal window were difficult to obtain and are suboptimal in quality. There is no prior echocardiogram noted for this patient. A saline contrast injection was performed to assess for cardiac shunting. The patient was imaged in the supine position. The heart rate ranged between 79-88 bpm during the study. Left Ventricle: The left ventricle is mildly dilated. Left ventricular wall thickness is mildly increased. Left ventricular systolic function is mildly reduced. The ejection fraction is estimated to be 45-50%. There is septal wall moderate hypokinesis. Unable to assess diastolic function due to rhythm abnormality. Right Ventricle: The right ventricle is grossly normal size. The right ventricular systolic function is normal. Atria: The left atrium is mildly dilated. The right atrium grossly appears normal in size. The interatrial septum is intact with no evidence for an atrial septal defect. Injection of contrast documented no interatrial shunt. Mitral Valve: The mitral valve leaflets are slightly calcified. There is mild mitral annular calcification. There is trace mitral regurgitation. Aortic Valve: The aortic valve is trileaflet. The aortic valve is mildly calcified. There is trace aortic regurgitation. Tricuspid Valve: The tricuspid valve is not well visualized, but is grossly normal. There is trace tricuspid regurgitation. Pulmonary artery pressures cannot be estimated because of the lack of a measurable TR jet velocity. Pulmonic Valve: The pulmonic valve is not well visualized. There is no significant valvular heart disease. Great Vessels: The aortic root is normal size. The ascending aorta could not be visualized. The IVC is of normal diameter and collapses greater than 50% with a sniff. This suggests a low right atrial pressure of 3 mm Hg. Pericardium/ Pleura There is no pericardial effusion. There is no pleural effusion. MMode/2D Measurements & Calculations LVOT diam: 2.0 cm TAPSE: 1.5 cm LA A2 area: 17.2 cm LA A4 area: 15.5 cm LA length (vol): 4.5 cm LA vol: 50.3 ml LA vol index: 32.9 ml/m2 Doppler Measurements & Calculations Ao V2 max Ao V2 mean LV V1 max PG MOHAMUD indexed to BSA : 142.7 cm/sec : 92.7 cm/sec (cm^2/m^2): 2.0 Ao max P.1 mmHgAo V2 VTI LV V1 VTI Ao mean PG : 21.8 cm LVOT Max Williams MOHAMUD(V,D): 2.9 cm2 : 125.7 cm/sec MOHAMUD(I,D): 3.1 cm sev ratio: 0.96 Reading Physician:ROSA ELENA
--- NOTE | 2016-10-18 15:20 | NUR ---
Evaluation completed. Please go to "Notes" then click on "Assessments and Notes" (bottom left corner of screen). Then select appropriate discipline tab on top of screen.
--- NOTE | 2016-10-18 15:50 | NUR ---
Evaluation completed. Please go to "Notes" then click on "Assessments and Notes" (bottom left corner of screen). Then select appropriate discipline tab on top of screen.
--- NOTE | 2016-10-18 16:01 | DRSVH ---
PROCEDURE: CT BRAIN WITHOUT CONTRAST ([id number]) INDICATIONS: CVA TECHNIQUE: Noncontrast 4.5 mm thick angled axial sections acquired from the foramen magnum to the vertex, with c oronal reformats. COMPARISON: [facility], CT, CT ANGIO BRAIN AND NECK, 10/17/2016, 16:46. [facility], CT, CT BRAIN WO CON, 10/17/2016, 15:08. [facility], CT, CT BRAIN WO CON, 7, 16:46. FINDINGS: Image quality: Limited by beam hardening artifact related to endovascular AAA aneurysm coils. CSF spaces: Basal cisterns are patent. No extra-axial fluid collections. The ventricles are symmet leelee in size and shape. Brain: No intracranial bleeds or masses. There is cerebral volume loss for age, with resultant vent ricular and sulcal prominence. There are periventricular and deep white matter chronic small vessel ischemic changes. Small, chronic, right basal ganglia lacunar infarct is stable compared to prior exa mination. Old left cerebellar hemisphere infarct is stable compared to prior examinations. There is intracranial internal carotid artery atherosclerosis. Skull and face: Calvarium and visualized facial bones appear intact, without suspicious lesions. Sinuses: Visualized sinuses and mastoids are clear. IMPRESSION: 1. Image quality limited by artifact related to cerebral aneurysm endovascular metallic coils. 2. No definite acute intracranial disease process. 3. Old right basal ganglia lacunar infarct and left cerebellar hemisphere infarct are stable compared to prior examinations. 4. No definite intracranial hemorrhage. Dictated by: Nessa Jasso MD, PhD on 10/18/2016 at 15:53 Approved by: Nessa Jasso MD, PhD on 10/18/2016 at 15:59
--- NOTE | 2016-10-18 16:07 | PCM.PNMED ---
Subjective Date of Service Oct 18, 2016 Subjective Continues to have left eye droop which has been going on for weeks. No new neurologic complaint. Exam Vital Signs Vital Sign - Last Date Time Temp Pulse Resp B/P Pulse Ox O2 Delivery O2 Flow Rate FiO2 10/18/16 13:36 36.9 77 18 111/62 95 Room Air Exam General: No acute distress, frail elderly lady laying comfortable in a hospital bed. HEENT: Normocephalic, atraumatic. External ears without defect. Pupils equal, round, and reactive to light and accommodation. Anicteric sclerae, moist conjunctivae, and no lid lag. Oropharynx free of erythema and cobble stoning with moist mucosa. Left pupil dilated. Left eyelid drooping. Neck: Supple with full range of motion. No jugular venous distension. No bruits. No lymphadenopathy or thyromegaly. Cardiovascular: Regular rate and rhythm with no murmurs, rubs, or gallops appreciated Pulmonary: Clear to auscultation bilaterally with no crackles, wheezes, or rhonchi. Normal respiratory effort with no use of accessory muscles. Abdomen: Bowel tones present. Soft, nontender, nondistended. No hepatosplenomegaly or masses appreciated. Extremities: No clubbing, cyanosis, edema, or lymphadenopathy appreciated. Skin: Normal temperature, turgor, and texture; no rash, ulcers, or subcutaneous nodules appreciated. Neurological: Cranial nerves bilaterally intact with the exception of cranial nerve III. Normal muscle strength, tone, with reduced bulk. Coordination, and sensory function within normal limits. Psychiatric: Normal mood and affect. Alert and oriented to person, place. IVs and Medications Medications Reviewed: Medications were reviewed in detail Lab and Diagnostics Result Diagram: 10/17/16 1533 10/17/16 1533 X-Rays, CTs and MRIs CT BRAIN WITHOUT CONTRAST IMPRESSION: 1. No acute intracranial abnormalities. 2. Old lacunar infarct in the right basal ganglia. 3. Cerebral volume loss and chronic microvascular ischemic changes. 4. Prior aneurysm coiling. Dictated by: Kinza Corona M.D. on 10/17/2016 at 15:22 CT ANGIO HEAD AND NECK IMPRESSION: 1. 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 No evidence of rupture. 2. Remaining arteries of the neck and head are patent. No further aneurysms. Left dominant vertebral artery. 3. Spiculated left apical pulmonary nodule is suspicious for malignancy. Recommend a chest CT with contrast which may be performed on a nonemergent basis. Biapical emphysema. Dictated by: Mike Abdalla M.D. on 10/17/2016 at 17:21 Cardiac Echo Impressions Interpretation Summary The left ventricle is mildly dilated. Left ventricular systolic function is mildly reduced. The ejection fraction is estimated to be 45-50%. There is septal wall moderate hypokinesis which could be secondary to bundle branch block. The right ventricle is grossly normal size. The right ventricular systolic function is normal. Pulmonary artery pressures cannot be estimated because of the lack of a measurable TR jet velocity. The left atrium is mildly dilated. The right atrium grossly appears normal in size. The interatrial septum is intact with no evidence for an atrial septal defect. Injection of contrast documented no interatrial shunt. There is no significant valvular heart disease. The aortic root is normal size. No obvious source for CVA on today's echocardiogram. 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 Repeat CT later today -Patient was already on 81 mg of aspirin ,will consider starting Plavix if any new stroke while on aspirin -Speech therapy, therapy, occupational therapy to evaluate. -Neurology consult called,awaiting call back # UTI -Urinalysis with pyuria, urine culture growing >100,000 GNRs -Ceftriaxone started #Chronic systolic CHF -EF 40-45% -Continue aspirin, lisinopril, statin, carvedilol #Spiculated left apical pulmonary nodule is suspicious for malignancy. -Recommend a chest CT with contrast which may be performed on a nonemergent basis -Patient's recent contrast load will hold off on chest CT. #Hypertension -Continue home medications #Hyperlipidemia -Continue home medication Observation status Discharge tomorrow VTE Prophylaxis: Sub-Q Heparin (Unfractionated) Resuscitation Status: CPR: Attempt Resuscitation Jackson Flores MD Oct 18, 2016 16:07
--- NOTE | 2016-10-18 19:24 | NUR ---
Activity and Neuros Using 1 PA to BSC and EOB for meals. PT and OT evals. Family at bedside for majority of the day. Neuros remain unchanged with left eye closed.
[2016-10-19] VITALS (7 sets, daily range): BP systolic 128–138; BP diastolic 52–69; PULSE 64–88; RESP 16; O2SAT 94–95
[2016-10-19] MEDS: Heparin 5,000 Unit/mL Inj SUBQ SCH ×2 (00:20→09:34)
--- NOTE | 2016-10-19 06:00 | NUR ---
NOC shift note Patient rested most of the night after about 2200. Denied pain. Neuro checks remained unchanged, left eyelid remains closed. Bed alarm on for safety as patient does not use call light for needs. Intentional rounding in place.
[2016-10-19 08:47] LABS: BASOPHILS % (AUTO) 0.4 % (0-3); EOSINOPHILS % (AUTO) 1.9 % (0-5); MONOCYTES % (AUTO) 13.4 % (4-12); Mean Corpuscular Hemoglobin 30.9 pg (27.0-35.0); Mean Corpuscular Volume 92.8 fL (81-100); NEUTROPHILS % (AUTO) 64.8 % (40-74); Platelet Count 260 bil/L (150-400)
[2016-10-19 09:20] LABS: Magnesium 2.1 mg/dL (1.6-2.6)
[2016-10-19] MEDS: cefTRIAXone Inj 1,000 MG in Dextrose 5% Minibag Plus 50 ML IV SCH (09:34)
[2016-10-19] MEDS ORDERED: Potassium Chloride 20 mEq SR Tablet PO ONE (09:35)
--- NOTE | 2016-10-19 14:46 | NUR ---
Social Work: Initial Assessment / Multidisciplinary Rounds / Readiness for d/c Data: Pt is an 86 y/o female admitted for CVA, oculomotoer nerve palsy. Pt's PCP is Dr Linsey Souza. Pt's insurance is [employer]. EMR reviewed, readmit score is 3, high. QUARTZ ORIENTATOR met with pt and family at bedside role explained. Pt's family states pt and spouse live on [address] in a single story home where pt's spouse and family care for her. Pt uses a walker at baseline, does not drive, pt has no hx of HH or SNF, no LTC or VA benefits. Pt had [facility] in the past. MD requested QUARTZ ORIENTATOR set up HH for family. Pt and family agreeable, HH choice list given, no preference stated. [facility] Pt's family plans to drive pt home when ready for d/c. QUARTZ ORIENTATOR [facility], pt's insurance is not always contracted with [facility], they are checking into this. QUARTZ ORIENTATOR awaiting phone call back. Assessment: Pt with caregiving at baseline, not capable of self care at this time. Plan: Pt will d/c home via POV likely with HH pending insurance. QUARTZ ORIENTATOR will continue to follow. MANOLO Squires Addendum: 10/19/16 at 1451 by MELIDA MALDONADO SS Amended: Links added. Addendum: 10/19/16 at 1452 by MELIDA CHESTER Access given to chilo Bolaños Facesheet to [phone]. MANOLO Squires
--- NOTE | 2016-10-19 15:09 | PCM.DIMED ---
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 #Hypertension #Hyperlipidemia Diet Discharge Diet: Low fat, Low Sodium Activity Discharge Activity: Limited until seen by PCP Call your provider Call your provider for: Fever or Chills, Shortness of breath, Bleeding, Chest pain, Vomitting, Excessive diarrhea, Weakness (unilateral) Patient Instructions Patient Instructions You were hospitalized to due to left eye droop . You were found to have left apical spiculated lung nodule. It seems that left lung nodule is compressing the fibers of cranial nerve III. You need it indicated CT contrast of chest, abdomen and pelvis. No done during current hospitalization due to CT contrast of brain. Please follow-up with PCP and get CT scan of chest/abdomen/pelvis. You also will need biopsy of lung nodule. Please take Keflex for UTI for 3 days. Follow-up Provider: Linsey Souza PA-C Follow-up with PCP in: 1 week (meenu) Jackson Flores MD Oct 19, 2016 15:09
[2016-10-19] MEDS ORDERED: CEPH-512 PO (15:12)
--- NOTE | 2016-10-19 15:31 | PCM.DC.MED ---
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 #Hypertension #Hyperlipidemia Consultations Neurology Dr. kumar Procedures XRay, CTs & MRIs CT BRAIN WITHOUT CONTRAST IMPRESSION: 1. No acute intracranial abnormalities. 2. Old lacunar infarct in the right basal ganglia. 3. Cerebral volume loss and chronic microvascular ischemic changes. 4. Prior aneurysm coiling. Dictated by: Kinza Corona M.D. on 10/17/2016 at 15:22 CT ANGIO HEAD AND NECK IMPRESSION: 1. 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 No evidence of rupture. 2. Remaining arteries of the neck and head are patent. No further aneurysms. Left dominant vertebral artery. 3. Spiculated left apical pulmonary nodule is suspicious for malignancy. Recommend a chest CT with contrast which may be performed on a nonemergent basis. Biapical emphysema. Dictated by: Mike Abdalla M.D. on 10/17/2016 at 17:21 Cardiac Echo Impression Interpretation Summary The left ventricle is mildly dilated. Left ventricular systolic function is mildly reduced. The ejection fraction is estimated to be 45-50%. There is septal wall moderate hypokinesis which could be secondary to bundle branch block. The right ventricle is grossly normal size. The right ventricular systolic function is normal. Pulmonary artery pressures cannot be estimated because of the lack of a measurable TR jet velocity. The left atrium is mildly dilated. The right atrium grossly appears normal in size. The interatrial septum is intact with no evidence for an atrial septal defect. Injection of contrast documented no interatrial shunt. There is no significant valvular heart disease. The aortic root is normal size. No obvious source for CVA on today's echocardiogram. 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 The patient herself is demented and is unable to give a thorough history. Patient's family including her and her granddaughter provides much of the history. Per the family's report the patient has been having left eye droop for the last month that has been worse over the last couple of days. The last couple of days the patient has also been noted to be much slower in her walking. They deny any unilateral weakness, slurred speech, facial droop, aspiration. Patient herself states that she feels fine and is unsure why she is here. 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 In the emergency department her vital signs were stable on presentation. A CT of the head revealed prior aneurysmal coiling but no acute intracranial changes. A CT angiogram of the head and neck revealed an old aneurysm appeared to be in an area unrelated to the patient's facial droop. 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 kumar, he evaluated patient. Cranial nerve palsy likely due to lung nodule compressing. Patient needs dedicated CT chest with contrast. May also need CT with contrast of abdomen and pelvis. Patient had recent contrast CT of the brain. Unable to do on current hospitalization. Explained to family the need for follow-up. -Home health for Speech therapy, therapy, occupational therapy to evaluate. 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 # UTI -Urinalysis with pyuria, urine culture growing >100,000 GNRs -Treated with Ceftriaxone . Discharge on Keflex for 3 days #Chronic systolic CHF -EF 40-45% -Continue aspirin, lisinopril, statin, carvedilol #Hypertension -Continue home medications #Hyperlipidemia -Continue home medication Observation status Discharge home Condition on discharge stable follow-up with PCP in 1 week Exam Vital Signs (Last) Date Time Temp Pulse Resp B/P Pulse Ox O2 Delivery O2 Flow Rate FiO2 10/19/16 11:52 70 10/19/16 09:50 36.9 16 128/64 94 Room Air Exam General: No acute distress, frail elderly lady laying comfortable in a hospital bed. HEENT: Normocephalic, atraumatic. External ears without defect. Pupils equal, round, and reactive to light and accommodation. Anicteric sclerae, moist conjunctivae, and no lid lag. Oropharynx free of erythema and cobble stoning with moist mucosa. Left pupil dilated. Left eyelid drooping. Neck: Supple with full range of motion. No jugular venous distension. No bruits. No lymphadenopathy or thyromegaly. Cardiovascular: Regular rate and rhythm with no murmurs, rubs, or gallops appreciated Pulmonary: Clear to auscultation bilaterally with no crackles, wheezes, or rhonchi. Normal respiratory effort with no use of accessory muscles. Abdomen: Bowel tones present. Soft, nontender, nondistended. No hepatosplenomegaly or masses appreciated. Extremities: No clubbing, cyanosis, edema, or lymphadenopathy appreciated. Skin: Normal temperature, turgor, and texture; no rash, ulcers, or subcutaneous nodules appreciated. Neurological: Cranial nerves bilaterally intact with the exception of cranial nerve III. Normal muscle strength, tone, with reduced bulk. Coordination, and sensory function within normal limits. Psychiatric: Normal mood and affect. Alert and oriented to person, place. Test 10/17/16 15:33 10/17/16 22:04 10/19/16 08:42 Prothrombin Time 10.4sec (8.1-12.5) Prothromb Time International Ratio 0.97ratio Activated Partial Thromboplast Time 24.7sec (22.8-33.0) Hemoglobin A1c 5.7% (4.8-5.6) Troponin T < 0.010ug/L (0.0-0.011) Triglycerides Level 87mg/dL (0-149) Cholesterol Level 105mg/dL (100-199) LDL Cholesterol, Calculated 53.600mg/dL (0-99) VLDL Cholesterol 17.400mg/dL HDL Cholesterol 34mg/dL (>39) Cholesterol/HDL Ratio 3.09 (0.0-4.4) Urine Color Yellow (YELLOW) Urine Appearance Hazy (CLEAR,HAZY) Urine pH 7.5 (5.0-8.0) Urine Specific [place] 1.010 (1.003-1.035) Urine Protein 100mg/dL (NEG,TRACE) Urine Glucose (UA) Negativemg/dL (NEGATIVE) Urine Ketones Negativemg/dL (NEGATIVE) Urine Occult Blood Large (NEGATIVE) Urine Nitrite Positive (NEGATIVE) Urine Bilirubin Negative (NEGATIVE) Urine Urobilinogen Normalmg/dL (NORMAL) Urine Leukocyte Esterase Large (NEGATIVE) Urine RBC >50/hpf (0-2) Urine WBC >50/hpf (0-5) Urine Epithelial Cells Moderate/hpf (NONE-MOD) Urine Crystals None seen (NONE SEEN) Urine Bacteria Many/hpf (NONE-FEW) Urine Hyaline Casts None/lpf (NONE) Urine Granular Casts None seen (NONE SEEN) Urine Waxy Casts None seen (NONE SEEN) Urine Red Blood Cell Casts None seen (NONE SEEN) Urine White Blood Cell Casts None seen (NONE SEEN) Urine Mucus None seen (None Seen) Urine Trichomonas None seen (NONE SEEN) Urine Yeast None (NONE SEEN) Urinalysis Comment None Urine Culture Reflexed Indicated White Blood Count 7.5th/mm3 (3.8-10.1) Red Blood Count 4.14mil/mm3 (3.90-5.20) Hemoglobin 12.8g/dL (12.0-15.6) Hematocrit 38.4% (35.0-46.0) Mean Corpuscular Volume 92.8fL (81-100) Mean Corpuscular Hemoglobin 30.9pg (27.0-35.0) Mean Corpuscular Hemoglobin Concent 33.3% (32.0-37.0) Red Cell Distribution Width 13.1% (12.3-15.4) Platelet Count 260bil/L (150-400) Neutrophils (%) (Auto) 64.8% (40-74) Lymphocytes (%) (Auto) 15.1% (14-46) Monocytes (%) (Auto) 13.4% (4-12) Eosinophils (%) (Auto) 1.9% (0-5) Basophils (%) (Auto) 0.4% (0-3) Sodium Level 138mEq/L (134-144) Potassium Level 3.3mEq/L (3.5-5.2) Chloride Level 100mEq/L (97-108) Carbon Dioxide Level 24mmol/L (18-29) Blood Urea Nitrogen 25mg/dL (8-27) Creatinine 0.42mg/dL (0.57-1.00) Estimat Glomerular Filtration Rate 206mL/min (>59) Glucose Level 100mg/dL (60-99) Calcium Level 8.7mg/dL (8.5-10.1) Magnesium Level 2.1mg/dL (1.6-2.6) Total Bilirubin 0.4mg/dL (0.0-1.2) Aspartate Amino Transf (AST/SGOT) 27U/L (0-50) Alanine Aminotransferase (ALT/SGPT) 28U/L (0-32) Alkaline Phosphatase 51U/L (25-165) Total Protein 5.8g/dL (6.4-8.4) Albumin 3.0g/dL (3.4-5.0) Procalcitonin 0.04ng/mL (0.00-0.08) Discharge Medications Discharge Medications Aspirin (Aspirin) 81 Mg Tablet 81 MG PO DAILY (Reported) Carvedilol (Carvedilol) 12.5 Mg Tablet 12.5 MG PO BID (Reported) Cephalexin (Keflex) 500 Mg Capsule 500 MG PO TID Prescribed by: JACKSON GARSIA MD Cholecalciferol (Vitamin D3) (Vitamin D3) 1,000 Unit Tab.chew 1,000 UNIT PO DAILY (Reported) Fluoxetine (Fluoxetine) 20 Mg Capsule 20 MG PO DAILY (Reported) Lisinopril (Lisinopril) 5 Mg Tablet 5 MG PO DAILY (Reported) Multivitamin (Once Daily) 1 Each Tablet 1 EACH PO DAILY (Reported) Rosuvastatin Calcium (Rosuvastatin Calcium) 40 Mg Tablet 40 MG PO DAILY ( Reported) Tamsulosin (Flomax) 0.4 Mg Capsule 0.4 MG PO DAILY (Reported) Trospium Chloride (Trospium Chloride) 20 Mg Tablet 20 MG PO DAILY (Reported) Followup Plan Disposition: home with HH Discharge Diet: Low fat, Low Sodium Discharge Activity: Limited until seen by PCP Patient Instructions You were hospitalized to due to left eye droop . You were found to have left apical spiculated lung nodule. It seems that left lung nodule is compressing the fibers of cranial nerve III. You need it indicated CT contrast of chest, abdomen and pelvis. No done during current hospitalization due to CT contrast of brain. Please follow-up with PCP and get CT scan of chest/abdomen/pelvis. You also will need biopsy of lung nodule. Please take Keflex for UTI for 3 days. Follow-up Provider: Linsey Souza PA-C Follow-up with PCP in: 1 week (herb) Provider: Noel Kumar MD Follow-up in: 3 weeks copies to: Linsey Souza PA-C, Melaku MD Oct 19, 2016 15:31
--- NOTE | 2016-10-19 16:03 | NUR ---
Social Work: Discharge Data: Pt is on day 2 of hospitalization. EMR reviewed. D/C orders are in. LEGAL FINANCIAL SPECIALIST called [facility] again, no answer regarding if pt's insurance will work for [facility]. LEGAL FINANCIAL SPECIALIST informed MD and RN. MD comfortable with pt discharging home with family with LEGAL FINANCIAL SPECIALIST to follow up for setting up HH in the AM. LEGAL FINANCIAL SPECIALIST will continue to follow. Assessment: Pt with caregiving at baseline, not capable of self care at this time. Plan: Pt will d/c home via POV today. [facility] getting back to LEGAL FINANCIAL SPECIALIST regarding if they can open with pt. LEGAL FINANCIAL SPECIALIST will follow up tomorrow and notify family. MANOLO Squires
--- NOTE | 2016-10-19 17:36 | NUR ---
Discharge D/C to home with family. CM to follow up with HH needs. Discharge packet with RX discussed and provided. Pt and family comfortable with plan of care at this time. Escorted off floor via RUBBER ENGRAVER and w/c with all belongings.
--- NOTE | 2016-10-20 15:37 | NUR ---
Social Work: Late Entry MAT MAKER spoke with [facility], they were unable to confirm or deny if they can work with pt's insurance over the weekend. They will review on Friday. UR specialist notified and [facility] MAT MAKER notified to follow up in the AM and to notify the family. MAT MAKER spoke with pt's spouse to let him know that MAT MAKER will call him tomorrow regarding the HH situation. MAT MAKER will continue to follow. MANOLO Squires
--- NOTE | 2016-10-21 14:35 | NUR ---
Social Work- late entry: CLARE spoke with Mason from [facility] who confirms they cannot take referral because they do not contract with pt's insurance. CLARE spoke with Brittany at [facility] who states they can accept insurance and will be able to accept referral and see pt within 48 hours. Information faxed into [facility]. SW placed a call to pt's spouse and updated him on services and he is agreeable to plan. MANOLO Parrish
== END 2016-10-19 16:20 | disposition home or self-care (01) ==
LOC: SED 14:11 → MPC 19:26
PROVIDERS: ADMIT Hospitalist; ATTEND Internal Medicine
DX: H49.00 Third [oculomotor] nerve palsy, unspecified eye (principal); R29.810 Facial weakness; R91.8 Other nonspecific abnormal finding of lung field; N39.0 Urinary tract infection, site not specified; I50.22 Chronic systolic (congestive) heart failure; I10 Essential (primary) hypertension; E78.5 Hyperlipidemia, unspecified; F03.90 Unspecified dementia, unspecified severity, without behavioral disturbance, psychotic disturbance, mood disturbance, and anxiety; F17.210 Nicotine dependence, cigarettes, uncomplicated; Z79.82 Long term (current) use of aspirin; Z79.899 Other long term (current) drug therapy; Z86.73 Personal history of transient ischemic attack (TIA), and cerebral infarction without residual deficits
CPT/HCPCS: 36415; 70450; 70496; 70498; 80053; 80061; 81000; 83036; 83735; 84145; 84484; 85025; 85610; 85730; 87086; 87088; 87186; 92526; 92610; 93005; 96365; 96366; 97163; 97165; 99291; C8929; G0378; J0696; J1644; J7050; Q9967